=== PATIENT | male | born 2000 | race Caucasian/White ===

== ENCOUNTER 2019-06-23 08:14 | Emergency (ER) | payer OTHER ==
[~2019-06-23] VITALS: Ht 175.3 cm; Wt 71.4 kg
[2019-06-23 11:55] VITALS: BP 146/61
[2019-06-23 12:06] LABS: GLUCOSE,POINT OF CARE 70 MG/DL (70-110)
== END 2019-06-23 12:36 | disposition home or self-care (01) ==
LOC: EMS 08:19
DX: G62.9 Polyneuropathy, unspecified (principal)
CPT/HCPCS: 82948

== ENCOUNTER 2019-08-25 22:27 | Emergency (ER) | payer OTHER ==
[~2019-08-25] VITALS: Ht 167.6 cm; Wt 78.0 kg
[2019-08-26] MEDS ORDERED: LIDOCAINE 1% 10 ML VIAL INJ ONE (01:30)
[2019-08-26 02:12] VITALS: BP 132/68
== END 2019-08-26 02:15 | disposition home or self-care (01) ==
LOC: EMS 22:29
DX: L03.012 Cellulitis of left finger (principal)
CPT/HCPCS: 10060; 73140; 99283; J3490